=== PATIENT | male | born 1965 | race Caucasian/White ===

== ENCOUNTER 2017-02-01 14:11 | Emergency (ER) | payer OTHER ==
--- NOTE | 2017-02-01 15:23 | XR ---
EXAMINATION TYPE: XR chest 2V DATE OF EXAM: 02/01/2017 3:08 PM COMPARISON: None TECHNIQUE: PA and lateral views submitted. HISTORY: Shortness of breath FINDINGS: Subsegmental changes within the right lower lobe are noted. No pleural effusion. No pneumothorax. No overt failure. Hypertrophic change of the spine. IMPRESSION: 1. Right subsegmental area of atelectasis or infiltrate. Consider CT scan as clinically warranted.
[2017-02-01] MEDS ORDERED: cefTRIAXone 1,000 MG VIAL (IM USE) IM STA (15:37)
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
[2017-02-01 15:55] VITALS: BP 159/87; PULSE 94; RESP 16; TEMP 98.2
== END 2017-02-01 15:55 | disposition home or self-care (01) ==
LOC: EC 14:11
DX: J18.1 Lobar pneumonia, unspecified organism (principal); I10 Essential (primary) hypertension; G89.29 Other chronic pain; F17.200 Nicotine dependence, unspecified, uncomplicated; Z79.891 Long term (current) use of opiate analgesic; Z79.899 Other long term (current) drug therapy
CPT/HCPCS: 93005; 71020; 99283; 96372; J0696

== ENCOUNTER 2017-02-17 10:05 | Emergency (ER) | payer SELFPAY ==
[2017-02-17 10:11] VITALS: BP 128/76; PULSE 100; RESP 16; TEMP 97.8
[2017-02-17] MEDS ORDERED: RX INFO: IV CONTRAST WAS GIVEN 1 EACH MISC MISCELLANE PRN (10:31)
[2017-02-17] MEDS ORDERED: SODIUM CHLORIDE 0.9% 1,000 ML IV STA (10:31)
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
[2017-02-17 10:45] LABS: Basophils % (A) 0 %; CH 30.3; CHCM 33.5; Eosinophils # (A) 0.1 k/uL (0-0.7); Eosinophils % (A) 1 %; HCT 41.5 % (39.0-53.0); HDW 2.34; Luc # (Auto) 0.17; Luc % (Auto) 2; Lymphocytes # (A) 1.7 k/uL (1.0-4.8); Lymphocytes % (A) 19 %; MCH 30.5 pg (25.0-35.0); MCHC 33.7 g/dL (31.0-37.0); MCV 90.6 fL (80.0-100.0); Mean Platelet Volume 6.8; Monocytes # (A) 0.4 k/uL (0-1.0); Monocytes % (A) 5 %; Neutrophils # (A) 6.3 k/uL (1.3-7.7); Neutrophils % (A) 73 %; RBC 4.58 m/uL (4.30-5.90); RDW 12.7 % (11.5-15.5); WBC 8.7 k/uL (3.8-10.6); WBC (Perox) 8.78
[2017-02-17 10:54] LABS: ALT 23 U/L (21-72); AST 25 U/L (17-59); Alkaline Phosphatase 84 U/L (38-126); Anion Gap 11 mmol/L; Blood Urea Nitrogen 14 mg/dL (9-20); Calcium 9.4 mg/dL (8.4-10.2); Carbon Dioxide 25 mmol/L (22-30); Chloride 108 mmol/L (98-107); Glucose 99 mg/dL (74-99); Magnesium 1.9 mg/dL (1.6-2.3); Non-African American GFR(MDRD) >60 (>60 ml/min/1.73 sqM); Partial Thromboplastin Time 25.1 sec (22.0-30.0); Potassium 4.3 mmol/L (3.5-5.1); Prothrombin Time 10.5 sec (9.0-12.0); Sodium 144 mmol/L (137-145); Total Bilirubin 0.5 mg/dL (0.2-1.3); Total Protein 7.2 g/dL (6.3-8.2)
[2017-02-17 11:03] LABS: Creatine Kinase 59 U/L (55-170)
[2017-02-17 11:16] LABS: Creatine Kinase MB 1.1 ng/mL (0.0-2.4); Troponin I <0.012 ng/mL (0.000-0.034)
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
--- NOTE | 2017-02-17 12:10 | P.PN ---
Progress Note - Text Possiblity of expanding aortic arch with worsening pain in the last 3 weeks. Recommend admission with evaluation for cardiothoracic, ICU with pulmonary evaluation.
[2017-02-17] MEDS ORDERED: HYDROcodone/APAP 5-325MG 1 EACH TAB PO STA (12:24)
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
== END 2017-02-17 12:44 | disposition left against medical advice (07) ==
LOC: EC 10:05
DX: S22.43XA Multiple fractures of ribs, bilateral, initial encounter for closed fracture (principal); S22.20XA Unspecified fracture of sternum, initial encounter for closed fracture; I71.2 Thoracic aortic aneurysm, without rupture; I10 Essential (primary) hypertension; F17.200 Nicotine dependence, unspecified, uncomplicated; Z79.899 Other long term (current) drug therapy; V87.9XXA Person injured in other specified (collision)(noncollision) transport accidents involving nonmotor vehicle (traffic), initial encounter; Y92.410 Unspecified street and highway as the place of occurrence of the external cause
CPT/HCPCS: 36415; 93005; 80053; 82550; 82553; 83735; 84484; 85025; 85610; 85730; 71275; 99284; 96360; 96361; Q9967

== ENCOUNTER 2017-02-19 05:08 | Inpatient (IN) | payer OTHER ==
[2017-02-19] MEDS ORDERED: SODIUM CHLORIDE 0.9% 1,000 ML IV STA (06:03)
[2017-02-19] MEDS ORDERED: RX INFO: IV CONTRAST WAS GIVEN 1 EACH MISC MISCELLANE PRN (06:03)
[2017-02-19] MEDS ORDERED: ONDANSETRON 4 MG/2 ML VIAL IVP STA (06:03)
[2017-02-19] MEDS ORDERED: MORPHINE SULFATE 4 MG/ML SYRINGE IV STA (06:03)
[2017-02-19 06:13] LABS: Aty Lym Flag Moderate; CH 30.1; CHCM 32.9; HCT 45.1 % (39.0-53.0); HDW 2.34; MCH 30.5 pg (25.0-35.0); MCHC 33.3 g/dL (31.0-37.0); MCV 91.7 fL (80.0-100.0); Mean Platelet Volume 6.8; RBC 4.91 m/uL (4.30-5.90); RDW 12.7 % (11.5-15.5); WBC 8.8 k/uL (3.8-10.6); WBC (Perox) 11.77
[2017-02-19 06:23] LABS: Partial Thromboplastin Time 24.6 sec (22.0-30.0); Prothrombin Time 9.8 sec (9.0-12.0)
[2017-02-19 06:30] LABS: ALT 23 U/L (21-72); AST 23 U/L (17-59); Add Differential Manual Differential; Alkaline Phosphatase 92 U/L (38-126); Anion Gap 9 mmol/L; Blood Urea Nitrogen 18 mg/dL (9-20); Calcium 9.5 mg/dL (8.4-10.2); Carbon Dioxide 32 mmol/L (22-30); Chloride 103 mmol/L (98-107); Glucose 84 mg/dL (74-99); Magnesium 2.1 mg/dL (1.6-2.3); Non-African American GFR(MDRD) >60 (>60 ml/min/1.73 sqM); Potassium 4.6 mmol/L (3.5-5.1); Sodium 144 mmol/L (137-145); Total Bilirubin 0.4 mg/dL (0.2-1.3); Total Protein 7.6 g/dL (6.3-8.2)
[2017-02-19 06:32] LABS: Creatine Kinase 139 U/L (55-170); Nucleated Red Blood Cells 0 /100 WBC (0-0); Total Cells Counted 100
[2017-02-19 06:33] LABS: Manual Review Performed
[2017-02-19 06:45] LABS: Creatine Kinase MB 1.1 ng/mL (0.0-2.4); Troponin I <0.012 ng/mL (0.000-0.034)
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
[2017-02-19] MEDS ORDERED: HYDROcodone/APAP 5-325MG 1 EACH TAB PO STA (07:30)
[2017-02-19] MEDS ORDERED: SODIUM CHLORIDE 0.9% 1,000 ML IV ONE (09:10)
[2017-02-19] MEDS ORDERED: HYDROcodone/APAP 5-325MG 1 EACH TAB PO PRN (09:14)
[2017-02-19] MEDS ORDERED: HYDROmorphone 1 MG/ML 1 ML SYRINGE IVP STA (09:42)
[2017-02-19 10:18] VITALS: BMI 23.7
[2017-02-19 11:25] VITALS: BP 117/77; PULSE 72; RESP 16; TEMP 97.9
--- NOTE | 2017-02-19 11:34 | XR ---
EXAMINATION TYPE: XR chest 1V portable DATE OF EXAM: 02/19/2017 COMPARISON: Prior chest x-ray 02/01/2017 HISTORY: Pneumonia, rib and sternum fractures TECHNIQUE: Single frontal view of the chest is obtained. FINDINGS: There is no pleural effusion, or pneumothorax seen. Minimal patchy density present at the right lung base. The cardiac silhouette size is within normal limits. The osseous structures are in tact. IMPRESSION: Improved aeration.
[2017-02-19] MEDS ORDERED: HYDROcodone/APAP 7.5-325MG 1 EACH TAB PO PRN (11:39)
[2017-02-19] MEDS ORDERED: ALPRAZolam 0.25 MG TAB PO PRN (11:41)
[2017-02-19] MEDS ORDERED: KETOROLAC 30 MG/ML 1 ML VIAL IVP PRN (11:43)
[2017-02-19] MEDS ORDERED: SODIUM CHLORIDE 0.9% 1,000 ML IV SCH (11:45)
[2017-02-19] MEDS ORDERED: HEPARIN SODIUM,PORCINE 5,000 UNIT/ML 1 ML VIAL SQ SCH (11:45)
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
[2017-02-19] MEDS ORDERED: LEVALBUTEROL NEB (CONC) 1.25 MG/0.5 ML AMP INHALATION SCH (12:00)
[2017-02-19] MEDS ORDERED: IPRATROPIUM 0.5 MG/2.5 ML NEBU INHALATION SCH (12:00)
[2017-02-19] MEDS ORDERED: NICOTINE 14MG/24HR PATCH TRANSDERM SCH (13:00)
[2017-02-19] MEDS ORDERED: PANTOPRAZOLE 40 MG/10 ML VIAL IVP SCH (13:00)
[2017-02-19] MEDS ORDERED: LEVOFLOXACIN 500MG-D5W PMX 500 MG in DEXTROSE/WATER 1 100ML.BAG IVPB SCH (13:00)
[2017-02-19] MEDS ORDERED: FORMOTEROL FUMARATE 20 MCG/2 ML NEBU INHALATION SCH (20:00)
[2017-02-19] MEDS ORDERED: BUDESONIDE 1 MG/2 ML NEBU INHALATION SCH (20:00)
[2017-02-19] MEDS ORDERED: METOPROLOL TARTRATE 50 MG TAB PO SCH (21:00)
[2017-02-19] MEDS ORDERED: TEMAZEPAM 15 MG CAP PO PRN (21:00)
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
== END 2017-02-19 13:05 | disposition left against medical advice (07) | DRG 183 ==
LOC: EC 05:08 → 5MS5E 09:10
PROVIDERS: ADMIT Hospitalist; ATTEND Hospitalist
DX: S22.20XA Unspecified fracture of sternum, initial encounter for closed fracture (principal); J18.9 Pneumonia, unspecified organism; S22.43XA Multiple fractures of ribs, bilateral, initial encounter for closed fracture; J98.11 Atelectasis; I71.2 Thoracic aortic aneurysm, without rupture; E78.5 Hyperlipidemia, unspecified; F17.200 Nicotine dependence, unspecified, uncomplicated; G89.29 Other chronic pain; I10 Essential (primary) hypertension; J45.20 Mild intermittent asthma, uncomplicated; F41.9 Anxiety disorder, unspecified; M19.90 Unspecified osteoarthritis, unspecified site; M54.9 Dorsalgia, unspecified; Z79.899 Other long term (current) drug therapy; Z82.49 Family history of ischemic heart disease and other diseases of the circulatory system; V89.2XXA Person injured in unspecified motor-vehicle accident, traffic, initial encounter; Y92.9 Unspecified place or not applicable
CPT/HCPCS: 36415; 71010; 71260; 80053; 82550; 82553; 83735; 84484; 85025; 85610; 85730; 93005; 96361; 96374; 96375; 99285

== ENCOUNTER 2017-07-23 17:16 | Observation (INO) | payer OTHER ==
[2017-07-23] MEDS ORDERED: MORPHINE SULFATE 2 MG/ML SYRINGE IV STA (18:49)
[2017-07-23] MEDS ORDERED: SODIUM CHLORIDE 0.9% 1,000 ML IV STA ×2 (18:49)
[2017-07-23] MEDS ORDERED: ONDANSETRON 4 MG/2 ML VIAL IVP STA (18:49)
--- NOTE | 2017-07-23 19:09 | ED ---
General Adult HPI - General Chief complaint: Chest Pain Stated complaint: Ches Pain, Abd Pain, Abnormal Weight loss Time Seen by Provider: 07/23/17 18:48 Source: patient, RN notes reviewed, old records reviewed Mode of arrival: wheelchair Limitations: no limitations - History of Present Illness Initial comments: This is a 51-year-old male to the ER for evaluation because patient is here for evaluation of chest pain. Patient states he feels similar to prior admission. Patient ascending aneurysm. X-ray that showed rib fractures and sternal fractures. Patient states that this pain is been episodic since his discharge. Patient has pain throughout, worse with movement. Otherwise no travel history no sick contacts no modifying factors for pain - Related Data Home Medications Medication Instructions Recorded Confirmed Albuterol Sulfate [Proventil Hfa] 1 - 2 puff INHALATION RT-Q6H PRN 07/23/17 Metoprolol Tartrate [Lopressor] 50 mg PO DAILY 07/23/17 07/23/17 traMADol HCL [Ultram] 50 mg PO TID PRN 07/23/17 07/23/17 Allergies Allergy/AdvReac Type Severity Reaction Status Date / Time No Known Allergies Allergy Verified 07/23/17 17:25 Review of Systems ROS Statement: Those systems with pertinent positive or pertinent negative responses have been documented in the HPI. ROS Other: All systems not noted in ROS Statement are negative. Past Medical History Past Medical History: Asthma, Hyperlipidemia, Hypertension Additional Past Medical History / Comment(s): chronic back pain History of Any Multi-Drug Resistant Organisms: None Reported Past Surgical History: Back Surgery, Orthopedic Surgery Additional Past Surgical History / Comment(s): shoulder, knee Past Anesthesia/Blood Transfusion Reactions: No Reported Reaction Past Psychological History: Anxiety Smoking Status: Current every day smoker Past Alcohol Use History: None Reported Past Drug Use History: None Reported - Past Family History Father Family Medical History: Hypertension Mother Family Medical History: Cancer Additional Family Medical History / Comment(s): passed from lung ca. General Exam Limitations: no limitations General appearance: alert, in no apparent distress Head exam: Present: atraumatic, normocephalic, normal inspection Eye exam: Present: normal appearance, PERRL, EOMI. Absent: scleral icterus, conjunctival injection, periorbital swelling ENT exam: Present: normal exam, mucous membranes moist Neck exam: Present: normal inspection. Absent: tenderness, meningismus, lymphadenopathy Respiratory exam: Present: normal lung sounds bilaterally. Absent: respiratory distress, wheezes, rales, rhonchi, stridor Cardiovascular Exam: Present: regular rate, normal rhythm, normal heart sounds. Absent: systolic murmur, diastolic murmur, rubs, gallop, clicks GI/Abdominal exam: Present: soft, normal bowel sounds. Absent: distended, tenderness, guarding, rebound, rigid Extremities exam: Present: normal inspection, full ROM, normal capillary refill. Absent: tenderness, pedal edema, joint swelling, calf tenderness Back exam: Present: normal inspection Neurological exam: Present: alert, oriented X3, CN II-XII intact Psychiatric exam: Present: normal affect, normal mood Skin exam: Present: warm, dry, intact, normal color. Absent: rash Course Vital Signs 07/23/17 17:23 Temperature 98.5 F Pulse Rate 76 Respiratory 18 Rate Blood Pressure 127/69 O2 Sat by Pulse 98 Oximetry - Reevaluation(s) Reevaluation #1: 07/23/17 20:20 Patient has mild pain improvement EKG Findings - EKG Comments: EKG Findings:: EKG shows sinus bradycardia rate of 58, TX 1:30, QRS 88, QTc 412 Medical Decision Making - Medical Decision Making 51 male here for evaluation of high blood pressure cholesterol smoker, recent travel. Patient coming in with chest pain abdominal pain. Nausea. Patient will be admitted for cardiac observation - Lab Data Result diagrams: 07/23/17 19:11 07/23/17 19:11 Lab Results 07/23/17 07/23/17 07/23/17 Range/Units 19:11 19:11 19:11 WBC 13.0 H (3.8-10.6) k/uL RBC 5.34 (4.30-5.90) m/uL Hgb 15.9 (13.0-17.5) gm/dL Hct 50.1 (39.0-53.0) % MCV 93.8 (80.0-100.0) fL MCH 29.8 (25.0-35.0) pg MCHC 31.8 (31.0-37.0) g/dL RDW 12.1 (11.5-15.5) % Plt Count 461 H (150-450) k/uL Neutrophils % 83 % Lymphocytes % 11 % Monocytes % 4 % Eosinophils % 0 % Basophils % 0 % Neutrophils # 10.8 H (1.3-7.7) k/uL Lymphocytes # 1.4 (1.0-4.8) k/uL Monocytes # 0.6 (0-1.0) k/uL Eosinophils # 0.1 (0-0.7) k/uL Basophils # 0.0 (0-0.2) k/uL PT 10.8 (9.0-12.0) sec INR 1.1 (<1.2) APTT 23.6 (22.0-30.0) sec D-Dimer 0.43 (<0.60) mg/L FEU Sodium 143 (137-145) mmol/L Potassium 4.7 (3.5-5.1) mmol/L Chloride 105 (98-107) mmol/L Carbon Dioxide 28 (22-30) mmol/L Anion Gap 10 mmol/L BUN 15 (9-20) mg/dL Creatinine 0.80 (0.66-1.25) mg/dL Est GFR (MDRD) Af Amer >60 (>60 ml/min/1.73 sqM) Est GFR (MDRD) Non-Af >60 (>60 ml/min/1.73 sqM) Glucose 92 (74-99) mg/dL Calcium 10.0 (8.4-10.2) mg/dL Magnesium 2.2 (1.6-2.3) mg/dL Total Bilirubin 0.6 (0.2-1.3) mg/dL AST 22 (17-59) U/L ALT 31 (21-72) U/L Alkaline Phosphatase 65 (38-126) U/L Total Protein 8.1 (6.3-8.2) g/dL Albumin 4.5 (3.5-5.0) g/dL Lipase 113 (23-300) U/L - Radiology Data Radiology results: report reviewed (Chest x-ray is negative for acute disease), image reviewed Critical Care Time Critical Care Time: Yes Total Critical Care Time: 31 Disposition Clinical Impression: Chest pain Disposition: ADMITTED IP TO THIS [facility] Condition: Undetermined Referrals: Shauna Whitaker MD [Primary Care Provider] - 1-2 days
[2017-07-23 19:28] LABS: Basophils % (A) 0 %; CH 29.9; Eosinophils # (A) 0.1 k/uL (0-0.7); Eosinophils % (A) 0 %; HCT 50.1 % (39.0-53.0); HDW 2.12; HGB 15.9 gm/dL (13.0-17.5); Luc # (Auto) 0.14; Luc % (Auto) 1; Lymphocytes # (A) 1.4 k/uL (1.0-4.8); Lymphocytes % (A) 11 %; MCH 29.8 pg (25.0-35.0); MCHC 31.8 g/dL (31.0-37.0); MCV 93.8 fL (80.0-100.0); Mean Platelet Volume 7.2; Monocytes # (A) 0.6 k/uL (0-1.0); Monocytes % (A) 4 %; Neutrophils # (A) 10.8 k/uL (1.3-7.7); Neutrophils % (A) 83 %; RBC 5.34 m/uL (4.30-5.90); RDW 12.1 % (11.5-15.5); WBC (Perox) 11.84
[2017-07-23 19:35] LABS: Amorphous Sediment,Urine Few /hpf; Appearance,Urine Turbid (Clear); Bilirubin,Urine Negative (Negative); Glucose,Urine (UA) Negative (Negative); Ketones,Urine Negative (Negative); Leukocyte Esterase,Urine Negative (Negative); Mucus,Urine Rare /hpf; Nitrite,Urine Negative (Negative); PH, Urine 7.5 (5.0-8.0); Particle Count 5054; Protein,Urine Negative (Negative); Specific Gravity,Urine 1.012 (1.001-1.035); UA Billing (MACRO vs. MICRO) MICRO; Urobilinogen,Urine <2.0 mg/dL (<2.0); WBC,Urine 3 /hpf (0-5)
[2017-07-23 19:46] LABS: ALT 31 U/L (21-72); AST 22 U/L (17-59); Alkaline Phosphatase 65 U/L (38-126); Anion Gap 10 mmol/L; Blood Urea Nitrogen 15 mg/dL (9-20); Carbon Dioxide 28 mmol/L (22-30); Chloride 105 mmol/L (98-107); Glucose 92 mg/dL (74-99); Magnesium 2.2 mg/dL (1.6-2.3); Non-African American GFR(MDRD) >60 (>60 ml/min/1.73 sqM); Potassium 4.7 mmol/L (3.5-5.1); Sodium 143 mmol/L (137-145); Total Bilirubin 0.6 mg/dL (0.2-1.3); Total Protein 8.1 g/dL (6.3-8.2)
[2017-07-23 19:54] LABS: Creatine Kinase 68 U/L (55-170)
[2017-07-23 20:03] LABS: INR 1.1 (<1.2); Partial Thromboplastin Time 23.6 sec (22.0-30.0); Prothrombin Time 10.8 sec (9.0-12.0)
[2017-07-23 20:07] LABS: Troponin I <0.012 ng/mL (0.000-0.034)
[2017-07-23] MEDS ORDERED: HEPARIN SODIUM,PORCINE 5,000 UNIT/ML 1 ML VIAL IV ONE (20:15)
[2017-07-23] MEDS ORDERED: SODIUM CHLORIDE 0.9% 1,000 ML IV SCH (20:15)
[2017-07-23] MEDS ORDERED: HEPARIN SODIUM,PORCINE 5,000 UNIT/ML 1 ML VIAL IV PRN (20:15)
[2017-07-23] MEDS ORDERED: NITROGLYCERIN SL TABS 0.4 MG TAB SUBLINGUAL PRN (20:15)
[2017-07-23] MEDS ORDERED: ASPIRIN 81 MG PO STA (20:15)
--- NOTE | 2017-07-23 20:22 | XR ---
EXAMINATION TYPE: XR chest 2V DATE OF EXAM: 07/23/2017 COMPARISON: 02/19/2017 HISTORY: Chest pain with tobacco abuse. TECHNIQUE: Frontal and lateral views of the chest are obtained. FINDINGS: There is no focal air space opacity, pleural effusion, or pneumothorax seen. The cardiac silhouette size is within normal limits. The osseous structures are intact. Right midlung nodularit y likely represent a nipple shadow although was not appreciated on the prior exam. IMPRESSION: No acute cardiopulmonary process. Right midlung density likely represents a nipple shado w although in this patient with a history of tobacco abuse repeat exam could be performed with nipple markers if there is concern for pulmonary nodule.
[2017-07-23] MEDS ORDERED: HEPARIN SODIUM,PORCINE/D5W PMX 25,000 UNIT in DEXTROSE/WATER 1 500ML.BAG IV SCH (21:00)
[2017-07-23 21:12] VITALS: BMI 24.3
[2017-07-23] MEDS: MORPHINE SULFATE 10 MG/ML SYRINGE IV PRN (21:15)
[2017-07-24] MEDS: MORPHINE SULFATE 10 MG/ML SYRINGE IV PRN ×6 (01:19→22:22)
[2017-07-24 01:41] LABS: Creatine Kinase 54 U/L (55-170)
[2017-07-24 01:55] LABS: Creatine Kinase MB 0.8 ng/mL (0.0-2.4); Troponin I <0.012 ng/mL (0.000-0.034)
[2017-07-24 08:52] LABS: Basophils % (A) 0 %; CH 29.9; CHCM 31.7; Eosinophils # (A) 0.1 k/uL (0-0.7); Eosinophils % (A) 1 %; HCT 43.3 % (39.0-53.0); HDW 2.13; HGB 13.7 gm/dL (13.0-17.5); Luc # (Auto) 0.12; Luc % (Auto) 1; Lymphocytes # (A) 1.4 k/uL (1.0-4.8); Lymphocytes % (A) 14 %; MCHC 31.6 g/dL (31.0-37.0); MCV 94.8 fL (80.0-100.0); Mean Platelet Volume 6.9; Monocytes # (A) 0.4 k/uL (0-1.0); Monocytes % (A) 5 %; Neutrophils # (A) 7.7 k/uL (1.3-7.7); Neutrophils % (A) 79 %; RBC 4.56 m/uL (4.30-5.90); RDW 12.3 % (11.5-15.5); WBC 9.7 k/uL (3.8-10.6); WBC (Perox) 9.51
[2017-07-24 09:05] LABS: Cholesterol 171 mg/dL (<200); HDL Cholesterol 48 mg/dL (40-60)
[2017-07-24 09:24] LABS: Creatine Kinase 41 U/L (55-170)
[2017-07-24] MEDS ORDERED: ALBUTEROL NEBULIZED 2.5 MG/3 ML INHALATION PRN (09:28)
[2017-07-24] MEDS ORDERED: traMADol 50 MG TAB PO PRN (09:28)
[2017-07-24 09:37] LABS: Creatine Kinase MB 0.7 ng/mL (0.0-2.4); Troponin I <0.012 ng/mL (0.000-0.034)
[2017-07-24 10:12] LABS: ALT 26 U/L (21-72); AST 15 U/L (17-59); Alkaline Phosphatase 50 U/L (38-126); Anion Gap 6 mmol/L; Blood Urea Nitrogen 18 mg/dL (9-20); Carbon Dioxide 22 mmol/L (22-30); Chloride 112 mmol/L (98-107); Glucose 95 mg/dL (74-99); Non-African American GFR(MDRD) >60 (>60 ml/min/1.73 sqM); Potassium 4.6 mmol/L (3.5-5.1); Sodium 140 mmol/L (137-145); Total Bilirubin 0.4 mg/dL (0.2-1.3); Total Protein 6.4 g/dL (6.3-8.2)
[2017-07-24] MEDS ORDERED: DOBUTamine DRIP for NUC MED 500 MG in DEXTROSE/WATER 1 250ML.BAG IV ONE (10:23)
--- NOTE | 2017-07-24 10:38 | ECHOF ---
Referral Reason:chest pain MEASUREMENTS -------- HEIGHT: 182.9 cm WEIGHT: 86.2 kg BP: 117/64 IVSd: 0.8 cm (0.6 - 1.1) LVIDd: 5.2 cm (3.9 - 5.3) LVPWd: 0.8 cm (0.6 - 1.1) IVSs: 1.5 cm LVIDs: 2.8 cm LVPWs: 1.8 cm Ao Diam: 3.7 cm (2.0 - 3.7) AV Cusp: 2.5 cm (1.5 - 2.6) LA Diam: 3.1 cm (2.7 - 3.8) MV EXCURSION: 19.783 mm (> 18.000) MV EF SLOPE: 148 mm/s (70 - 150) EPSS: 1.5 cm MV E Ismael: 0.70 m/s MV DecT: 197 ms MV A Ismael: 0.49 m/s MV E/A Ratio: 1.43 RAP: 15.00 mmHg RVSP: 23.29 mmHg FINDINGS -------- Sinus rhythm. This was a technically good study. Left ventricular wall thickness is normal. Overall left ventricular systolic function is normal wit h, an EF between 55 - 60 %. The right ventricle is normal in size and function. The left atrium is normal in size. The right atrium is normal in size. The aortic valve is trileaflet, and appears structurally normal. No aortic stenosis or regurgitation. The mitral valve is normal. There is trace mitral regurgitation. Trace tricuspid regurgitation present. The right ventricular systolic pressure, as measured by Dopp ler, is 23.29mmHg. There is no pulmonic regurgitation present. The aortic root size is normal. The inferior vena cava is mildly dilated. There is no pericardial effusion. CONCLUSIONS -------- 1. Sinus rhythm. 2. This was a technically good study. 3. Left ventricular wall thickness is normal. 4. Overall left ventricular systolic function is normal with, an EF between 55 - 60 %. 5. The left atrium is normal in size. 6. The aortic valve is trileaflet, and appears structurally normal. No aortic stenosis or regurgitati on. 7. There is trace mitral regurgitation. 8. Trace tricuspid regurgitation present. 9. The right ventricular systolic pressure, as measured by Doppler, is 23.29mmHg. 10. There is no pulmonic regurgitation present. 11. The aortic root size is normal. 12. The inferior vena cava is mildly dilated. 13. There is no pericardial effusion. FIELD SCOUT: Sara Layton RDCS
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
[2017-07-24] MEDS: ASPIRIN 325 MG TAB PO SCH (12:10)
[2017-07-24] MEDS: PANTOPRAZOLE 40 MG TABLET PO SCH (12:10)
[2017-07-24] MEDS: NICOTINE 21MG/24HR PATCH TRANSDERM SCH (12:11)
--- NOTE | 2017-07-24 12:28 | ECHOS ---
Referral Reason:chest pain MEASUREMENTS -------- HEIGHT: 182.9 cm WEIGHT: 86.2 kg BP: FINDINGS -------- The patient received intravenous 15mg 0f dobutamine in 5 min (low dose 5mcg/kg/ min) and 3 minute stages III (>5mcg/kg/min) to a maximum 147 of /kg/min plus XX mg atropine. Sinus rhythm. In response to stress, the ECG showed no ST-T wave changes . In response to stress, the ECG showed no ST-T wave changes . There were normal blood pressure and heart rate responses to stress. LV size, wall thickness and systolic function are normal, with an EF of 60%. At recovery dobutamine stress there was appropriate augmentation of systolic function of all segments with decrease in cavity size. CONCLUSIONS -------- 1. The patient received intravenous 15mg 0f dobutamine in 5 min (low dose 5mcg/ kg/min) and 3 minute stages III (>5mcg/kg/min) to a maximum 147 of /kg/min plus XX mg atropine. 2. In response to stress, the ECG showed no ST-T wave changes . 3. No 2D echocardiographic evidence of inducible ischemia to achieved workload. SR. DIRECTOR: Seema Lundberg RDCS MTDD
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
--- NOTE | 2017-07-24 13:47 | US ---
EXAMINATION TYPE: US abdomen complete DATE OF EXAM: 07/24/2017 COMPARISON: OPAL CLINICAL HISTORY: epigastric pain, aortic aneurysm. Patient states having epigastric pain EXAM MEASUREMENTS: Liver Length: 19.1 cm Gallbladder Wall: 0.2 cm CBD: 0.6 cm CHD: 0.4 cm Spleen: 9.9 cm Right Kidney: 12.0 x 5.9 x 5.5 cm Left Kidney: 11.0 x 5.0 x 5.6 cm Pancreas: wnl Liver: enlarged Gallbladder: wnl Evidence for sonographic Arreola's sign: neg CBD: wnl CHD: wnl Spleen: suboptimal visualization due to overlying bowel gas Right Kidney: wnl Left Kidney: wnl Upper IVC: wnl Abd Aorta: Portions obscured due to overlying bowel gas. Scanned supine, LLD and RLD. WNL as visual ized. There is no ascites The liver is enlarged, echotexture is homogenous. The intrahepatic portion of the IVC and proximal a bdominal aorta are within normal limits. There is no evidence of cholelithiasis. Gallbladder borderl ine hydropic. Common bile duct is unremarkable. The visualized portions of the pancreas are homogen ous. The spleen is unremarkable. Kidneys are symmetric and free of hydronephrosis, cortical medulla ry differentiation is maintained. No renal lesions are seen. IMPRESSION: No aortic aneurysm evident, some limitations in evaluation. Hepatomegaly.
[2017-07-24] MEDS ORDERED: IOHEXOL 350 MG/ML 25 ML BOTTLE (ORAL USE) PO PRN (14:11)
[2017-07-24] MEDS ORDERED: RX INFO: IV CONTRAST WAS GIVEN 1 EACH MISC MISCELLANE PRN (14:11)
--- NOTE | 2017-07-24 16:25 | CT ---
EXAMINATION TYPE: CT abdomen w con DATE OF EXAM: 07/24/2017 COMPARISON: CT chest 02/19/2017 HISTORY: 51-year-old male with Upper Abdominal pain with nausea TECHNIQUE: Contiguous axial scanning of the abdomen following administration of 100 ml Omnipaque 300 IV contrast. Delayed images through the kidneys and coronal/sagittal reconstructions performed. CT DLP: 370.5 mGycm Automated exposure control for dose reduction was used. FINDINGS: The heart is normal size without pericardial effusion. Some patchy centrilobular and tree-in-bud infi ltrates in the right middle lobe with some intraluminal debris within the bronchus basalis. Much of t he opacities previously seen in the bilateral basilar lower lobes has resolved. No pleural effusion. No focal liver lesion or biliary ductal dilatation. Portal venous system is patent. Gallbladder, adrenal glands, kidneys, spleen, and pancreas appear within normal limits. No dilated small bowel, free fluid, or free air. No mesenteric or retroperitoneal lymphadenopathy. Moderate stool burden without pericolonic inflammatory change. Prominent ingested debris within the s tomach. Bones: Post surgical changes of L4-S1 fusion. No osseous destructive process. IMPRESSION: 1. SOME INTRALUMINAL DEBRIS SEEN WITHIN THE DISC SPACE ROXANN AND PATCHY INFILTRATE WITHIN THE RIGHT M IDDLE LOBE. CORRELATE FOR INFECTIOUS OR ASPIRATION PNEUMONITIS. OVERALL INFILTRATES HAVE IMPROVED FRO M 02/19/2017. 2. MODERATE STOOL BURDEN. 3. NO ACUTE INFLAMMATORY PROCESS IDENTIFIED IN THE ABDOMEN TO EXPLAIN THE PATIENT'S SYMPTOMS.
[2017-07-25] MEDS: MORPHINE SULFATE 10 MG/ML SYRINGE IV PRN ×2 (05:21→09:34)
[2017-07-25 05:51] LABS: Mean Platelet Volume 7.5
[2017-07-25 08:38] VITALS: BP 129/68; PULSE 67; RESP 18; TEMP 98.4
[2017-07-25] MEDS: ASPIRIN 325 MG TAB PO SCH (08:40)
[2017-07-25] MEDS: NICOTINE 21MG/24HR PATCH TRANSDERM SCH (08:40)
[2017-07-25] MEDS: PANTOPRAZOLE 40 MG TABLET PO SCH (08:40)
[2017-07-25] MEDS ORDERED: METOPROLOL TARTRATE 50 MG TAB PO SCH (09:00)
[2017-07-25] MEDS ORDERED: ATORVASTATIN 40 MG TAB PO SCH (09:00)
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
== END 2017-07-25 11:30 | disposition home or self-care (01) ==
LOC: EC 17:16 → 3OBS 20:19
PROVIDERS: ADMIT Internal Medicine; ATTEND Internal Medicine
DX: R10.13 Epigastric pain (principal); I71.2 Thoracic aortic aneurysm, without rupture; R07.89 Other chest pain; F41.1 Generalized anxiety disorder; E78.5 Hyperlipidemia, unspecified; R11.0 Nausea; F17.200 Nicotine dependence, unspecified, uncomplicated; J45.909 Unspecified asthma, uncomplicated; I10 Essential (primary) hypertension; R63.4 Abnormal weight loss; M54.9 Dorsalgia, unspecified; G89.29 Other chronic pain; V89.2XXD Person injured in unspecified motor-vehicle accident, traffic, subsequent encounter; S22.43XD Multiple fractures of ribs, bilateral, subsequent encounter for fracture with routine healing; S22.20XD Unspecified fracture of sternum, subsequent encounter for fracture with routine healing; Z79.82 Long term (current) use of aspirin; Z79.899 Other long term (current) drug therapy; Z87.828 Personal history of other (healed) physical injury and trauma; Z82.49 Family history of ischemic heart disease and other diseases of the circulatory system
CPT/HCPCS: 99291 ×2; 96375 ×3; 96376 ×5; 96361 ×2; 96365; 96366 ×2; 36415; 94640; 93005; 93017; 93306; 93350; 85379; 80061; 80053 ×2; 82550 ×2; 82553 ×2; 83690; 83735; 84484 ×2; 85025 ×2; 85049; 85610; 85730 ×2; 81001; 87086; 71020; 76700; 74160; G0378 ×3; J1250; J1644 ×2; J2270 ×4; J2405; Q9967

== ENCOUNTER 2018-10-18 23:37 | Emergency (ER) | payer OTHER ==
[2018-10-18 23:44] VITALS: BP 155/95; PULSE 85; RESP 20; TEMP 97.9
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
[2018-10-19] MEDS ORDERED: SULFAMETHOX-TMP 800-160MG 1 EACH TAB PO STA (00:23)
== END 2018-10-19 00:43 | disposition home or self-care (01) ==
LOC: SUPCPDRO 23:37 → EC 23:37
DX: L73.2 Hidradenitis suppurativa (principal); J45.909 Unspecified asthma, uncomplicated; I10 Essential (primary) hypertension; F17.200 Nicotine dependence, unspecified, uncomplicated; Z79.899 Other long term (current) drug therapy
CPT/HCPCS: 99284

== ENCOUNTER 2019-01-18 18:56 | Emergency (ER) | payer OTHER ==
[2019-01-18 19:18] VITALS: BP 131/76; PULSE 87; RESP 16; TEMP 98.4
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
[2019-01-18] MEDS ORDERED: HYDROcodone/APAP 7.5-325MG 1 EACH TAB PO ONE (21:30)
== END 2019-01-18 21:38 | disposition home or self-care (01) ==
LOC: EC 18:56
DX: S09.90XA Unspecified injury of head, initial encounter (principal); M54.2 Cervicalgia; J32.9 Chronic sinusitis, unspecified; J45.909 Unspecified asthma, uncomplicated; I10 Essential (primary) hypertension; F17.200 Nicotine dependence, unspecified, uncomplicated; Z79.899 Other long term (current) drug therapy; Y04.2XXA Assault by strike against or bumped into by another person, initial encounter; Y92.89 Other specified places as the place of occurrence of the external cause
CPT/HCPCS: 72125; 70486; 70450; 99284; L0120

== ENCOUNTER 2019-02-24 16:07 | Emergency (ER) | payer OTHER ==
[2019-02-24 16:39] VITALS: BP 118/73; PULSE 89; RESP 18; TEMP 98.7
--- NOTE | 2019-02-24 18:28 | XR ---
EXAMINATION TYPE: XR lumbar spine 2 or 3V DATE OF EXAM: 02/24/2019 COMPARISON: NONE HISTORY: Low back pain TECHNIQUE: 3 views FINDINGS: Vertebra have fairly normal alignment. There are rods and screws fusing posteriorly the lum bar spine from L4 to S1. There is disc prosthesis at L4-5 L5-S1. There is intact sacroiliac joints. T here is no compression fracture. There is disc space narrowing. IMPRESSION: Spondylotic changes. Previous surgery. No acute bony abnormality.
[2019-02-24] MEDS ORDERED: KETOROLAC 60 MG/2 ML VIAL IM STA (18:35)
[2019-02-24] MEDS ORDERED: predniSONE 50 MG TAB PO STA (18:35)
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
== END 2019-02-24 19:13 | disposition home or self-care (01) ==
LOC: EC 16:07
DX: S33.5XXA Sprain of ligaments of lumbar spine, initial encounter (principal); J45.909 Unspecified asthma, uncomplicated; I10 Essential (primary) hypertension; F17.200 Nicotine dependence, unspecified, uncomplicated; Z79.899 Other long term (current) drug therapy; Z98.890 Other specified postprocedural states; X58.XXXA Exposure to other specified factors, initial encounter; Y93.89 Activity, other specified
CPT/HCPCS: 72100; 99284; 96372; J1885; J7512

== ENCOUNTER 2019-05-09 07:49 | Emergency (ER) | payer OTHER ==
[2019-05-09 07:57] VITALS: BP 134/82; PULSE 93; RESP 18; TEMP 98
[2019-05-09] MEDS ORDERED: SODIUM CHLORIDE 0.9% IRRIG 1,000 ML BTL IRRIGATION ONE (08:02)
[2019-05-09] MEDS ORDERED: DIPH,PERTUS(ACELL)TETVAC-LF 0.5 ML VIAL IM ONE (08:02)
[2019-05-09] MEDS ORDERED: LIDOCAINE 1% INJ 10MG/ML (20 ML MDV) SQ STA (08:02)
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
--- NOTE | 2019-05-09 08:19 | XR ---
Right hand HISTORY: Laceration third digit, crush injury 3 views of the right hand Punctate metallic density present at the level of the fifth digit fingernail. Soft tissue swelling no gladys at the third digit. Arthropathy is present at the distal interphalangeal joint of the fifth digit . Lucency in the volar soft tissues of the third digit compatible with patient's history of laceratio n. No radiopaque foreign body at the level of the third digit. IMPRESSION: No fracture or dislocation. Soft tissue injury and additional findings above.
== END 2019-05-09 09:05 | disposition home or self-care (01) ==
LOC: EC 07:49
DX: S61.212A Laceration without foreign body of right middle finger without damage to nail, initial encounter (principal); Z23 Encounter for immunization; J45.909 Unspecified asthma, uncomplicated; I10 Essential (primary) hypertension; F17.200 Nicotine dependence, unspecified, uncomplicated; Z79.899 Other long term (current) drug therapy; W24.0XXA Contact with lifting devices, not elsewhere classified, initial encounter; Y92.69 Other specified industrial and construction area as the place of occurrence of the external cause; Y99.0 Civilian activity done for income or pay
CPT/HCPCS: 73130; 90715; 99283; 90471; 12001; J2001

== ENCOUNTER 2019-05-17 09:42 | Emergency (ER) | payer OTHER ==
[2019-05-17 09:47] VITALS: BP 139/78; PULSE 101; RESP 18; TEMP 98.3
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
[2019-05-17] MEDS ORDERED: SULFAMETH-TMP DS STARTER PACK 2 TAB BTL PO STA (10:42)
== END 2019-05-17 10:40 | disposition home or self-care (01) ==
LOC: EC 09:42
DX: S61.212A Laceration without foreign body of right middle finger without damage to nail, initial encounter (principal); L08.9 Local infection of the skin and subcutaneous tissue, unspecified; J45.909 Unspecified asthma, uncomplicated; I10 Essential (primary) hypertension; E78.5 Hyperlipidemia, unspecified; F17.200 Nicotine dependence, unspecified, uncomplicated; Z79.899 Other long term (current) drug therapy; X58.XXXA Exposure to other specified factors, initial encounter; Y92.69 Other specified industrial and construction area as the place of occurrence of the external cause; Y99.0 Civilian activity done for income or pay
CPT/HCPCS: 87070; 87077; 87186; 87205; 99284

== ENCOUNTER 2019-05-20 09:20 | Emergency (ER) | payer OTHER ==
[2019-05-20 09:36] VITALS: BP 130/82; PULSE 91; RESP 20; TEMP 98
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
== END 2019-05-20 10:52 | disposition home or self-care (01) ==
LOC: EC 09:20
DX: S61.212D Laceration without foreign body of right middle finger without damage to nail, subsequent encounter (principal); J45.909 Unspecified asthma, uncomplicated; E78.5 Hyperlipidemia, unspecified; I10 Essential (primary) hypertension; F17.200 Nicotine dependence, unspecified, uncomplicated; Z79.899 Other long term (current) drug therapy; W45.8XXD Other foreign body or object entering through skin, subsequent encounter; Y99.0 Civilian activity done for income or pay
CPT/HCPCS: 99282

== ENCOUNTER 2022-06-12 14:26 | Emergency (ER) | payer OTHER ==
[2022-06-12 15:03] VITALS: TEMP 97.8
[2022-06-12] MEDS ORDERED: LIDOCAINE 1% INJ 10MG/ML (20 ML MDV) SQ ONE (15:47)
--- NOTE | 2022-06-12 16:19 | XR ---
EXAMINATION TYPE: XR finger RT DATE OF EXAM: 06/12/2022 COMPARISON: 05/09/2019 HISTORY: Trauma laceration fourth digit TECHNIQUE: 3 view right ring finger FINDINGS: There is a transverse fracture of the distal tuft of the right ring finger. Soft tissue swe lling is present. No radiopaque foreign body is evident. IMPRESSION: 1. Transverse fracture tuft ring finger with soft tissue swelling.
[2022-06-12] MEDS ORDERED: DIPH,PERTUS(ACELL)TETVAC-LF 0.5 ML VIAL IM ONE (16:33)
[2022-06-12] MEDS ORDERED: ceFAZolin 1,000 MG VIAL (IM USE) IM STA (16:34)
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
[2022-06-12 17:42] VITALS: BP 122/64; PULSE 78; RESP 18
== END 2022-06-12 17:42 | disposition home or self-care (01) ==
LOC: EC 14:26
DX: S62.630A Displaced fracture of distal phalanx of right index finger, initial encounter for closed fracture (principal); J45.909 Unspecified asthma, uncomplicated; E78.5 Hyperlipidemia, unspecified; Z23 Encounter for immunization; I10 Essential (primary) hypertension; W20.8XXA Other cause of strike by thrown, projected or falling object, initial encounter
CPT/HCPCS: 73140; 90715; 99283; 96372; 90471; J0690; J2001